=== PATIENT | male | born 1985 | race African-American/Black ===

== ENCOUNTER 2025-03-13 07:31 | Emergency (ER) | payer BC, MEDICAID ==
[~2025-03-13] VITALS: Ht 182.9 cm; Wt 117.0 kg
[2025-03-13 07:35] VITALS: O2SAT 97
[2025-03-13] MEDS: ACETAMINOPHEN 325MG TABLET PO ONE (08:06)
[2025-03-13] MEDS: BACITRACIN ZINC OINT UDPKT TOP ONE (08:06)
[2025-03-13] MEDS ORDERED: BO1 TP (09:29)
[2025-03-13] MEDS ORDERED: TOPUD PO (09:29)
[2025-03-13 09:43] VITALS: BP 151/82; PULSE 92; RESP 16; TEMP 36.7; O2SAT 98
== END 2025-03-13 10:36 | disposition home or self-care (01) ==
LOC: ER 07:31
DX: S60.221A Contusion of right hand, initial encounter (principal); S80.01XA Contusion of right knee, initial encounter; Z79.899 Other long term (current) drug therapy; X58.XXXA Exposure to other specified factors, initial encounter; Y93.89 Activity, other specified; Y92.89 Other specified places as the place of occurrence of the external cause; Y99.8 Other external cause status
CPT/HCPCS: 73130; 73560; 99284; Z7610